=== PATIENT | female | born 1965 | race Two or more races ===

== ENCOUNTER 2017-10-05 14:25 | Emergency (ER) | payer MEDICAID ==
[~2017-10-05] VITALS: Ht 167.6 cm; Wt 89.4 kg
[2017-10-05 14:38] VITALS: BP 120/82
--- NOTE | 2017-10-05 15:28 | Emergency Room Report ---
History of Present Illness General Chief Complaint: Pain Source: EMS Present Illness [facility] Ms. Bronson is 52 -year-old female with history of depression, hypothyroidism and chronic pain who presents with diffuse body aches and chest pain. Recently traveled to her home country [facility]. While in [facility] she developed left sided chest pain. She was evaluated with EKG x-ray and lab. She did bring these results alongside her. She was evaluated by her pain management physician today with routine appt who referred to to her primary care physician today. Primary care physician recommended that she is evaluated in the ER. Her pain management physician gave her the tentative diagnosis of fibromyalgia. She's had no history of PE or cardiac disease. However she is concerned about her heart. She also provided information from air conditioning engineer.. She had normal echocardiogram at that time. She also informed me that she had normal outpatient cardiac stress test last year. Allergies: Coded Allergies: No Known Allergies (Unverified , 10/05/17) Patient History Past Medical History: other - as per HPI Past Surgical History: other - back surgery Social History: Denies: smoking, alcohol use, drug use Last Menstrual Period: NA Now: No Reviewed Nursing Documentation: PMH: Agreed; PSxH: Agreed Nursing Documentation-PMH Past Medical History: No History, Except For Review of Systems Constitutional: Denies: fever Respiratory: Denies: cough Cardiovascular: Reports: chest pain Gastrointestinal: Denies: abdominal pain Musculoskeletal: Reports: muscle pain; Denies: back pain All Other Systems: negative except mentioned in HPI Physical Exam Vital Signs Date Time Temp Pulse Resp B/P (MAP) Pulse Ox O2 Delivery O2 Flow Rate FiO2 10/05/17 14:18 97.4 75 18 120/82 99 Room Air 97.3 Sp02 EP Interpretation: reviewed, normal General Appearance: no apparent distress, alert, GCS 15, non-toxic Head: normocephalic, atraumatic Eyes: bilateral eye normal inspection ENT: hearing grossly normal, normal pharynx, no angioedema, normal voice Neck: full range of motion, supple/symm/no masses Respiratory: chest non-tender, lungs clear, normal breath sounds, speaking full sentences Cardiovascular #1: regular rate, rhythm, no edema Gastrointestinal: normal bowel sounds, non tender, soft, non-distended, no guarding, no rebound Rectal: deferred Genitourinary: normal inspection Musculoskeletal: back normal, gait/station normal, normal range of motion Neurologic: alert, oriented x3, responsive, motor strength/tone normal, sensory intact, speech normal Psychiatric: judgement/insight normal, memory normal, mood/affect normal Skin: normal color, no rash, warm/dry, well hydrated Medical Decision Making ER Course Ms. Bronson presents with diffuse body pain and chest pain. Chest pain is atypical for ACS. She is low risk for cardiac disease. There is no family history of cardiac disease. She has had previous cardiac evaluation. I recommended evaluation by pain management physician for myalgia. Also recommended further evaluation by primary physician for noncardiac etiology of chest pain. I do not suspect pulmonary embolism nor pneumothorax nor dissection nor PNA. Labs Test 10/05/17 16:00 10/05/17 16:55 Sodium Level 136 MMOL/L (136-145) Potassium Level 4.2 MMOL/L (3.5-5.1) Chloride Level 106 MMOL/L (98-107) Carbon Dioxide Level 24 MMOL/L (21-32) Anion Gap 6 mmol/L (5-15) Blood Urea Nitrogen 8 mg/dL (7-18) Creatinine 0.8 MG/DL (0.55-1.30) Estimat Glomerular Filtration Rate > 60 mL/min (>60) Glucose Level 95 MG/DL (74-106) Calcium Level 9.8 MG/DL (8.5-10.1) Total Bilirubin 0.7 MG/DL (0.2-1.0) Aspartate Amino Transf (AST/SGOT) 23 U/L (15-37) Alanine Aminotransferase (ALT/SGPT) 30 U/L (12-78) Alkaline Phosphatase 107 U/L (46-116) Total Creatine Kinase 90 U/L (26-308) Troponin I 0.000 ng/mL (0.000-0.056) Total Protein 7.3 G/DL (6.4-8.2) Albumin 3.9 G/DL (3.4-5.0) Globulin 3.4 g/dL Albumin/Globulin Ratio 1.1 (1.0-2.7) White Blood Count 9.8 K/UL (4.8-10.8) Red Blood Count 5.06 M/UL (4.20-5.40) Hemoglobin 14.0 G/DL (12.0-16.0) Hematocrit 41.8 % (37.0-47.0) Mean Corpuscular Volume 83 FL (80-99) Mean Corpuscular Hemoglobin 27.8 PG (27.0-31.0) Mean Corpuscular Hemoglobin Concent 33.6 G/DL (32.0-36.0) Red Cell Distribution Width 13.1 % (11.6-14.8) Platelet Count 225 K/UL (150-450) Mean Platelet Volume 12.3 FL (6.5-10.1) Neutrophils (%) (Auto) 49.4 % (45.0-75.0) Lymphocytes (%) (Auto) 40.8 % (20.0-45.0) Monocytes (%) (Auto) 6.2 % (1.0-10.0) Eosinophils (%) (Auto) 2.1 % (0.0-3.0) Basophils (%) (Auto) 1.6 % (0.0-2.0) Lab Results Impression negative troponin EKG Diagnostic Results EKG Time: 15:31 Rate: normal Rhythm: NSR ST Segments: no acute changes Other Impression no ST elevation no T wave abnormality rate 80 bpm nl axis Last Vital Signs Date Time Temp Pulse Resp B/P (MAP) Pulse Ox O2 Delivery O2 Flow Rate FiO2 10/05/17 14:38 97.3 84 18 120/82 99 Room Air 97.3 LILLIE DIEGO Oct 05, 2017 15:28
[2017-10-05] MEDS ORDERED: Norco 5mg/325mg tab ORAL ONE (15:30)
[2017-10-05 16:22] LABS: ANION GAP 6 mmol/L (5-15); BLOOD UREA NITROGEN 8 mg/dL (7-18); CALCIUM 9.8 MG/DL (8.5-10.1); CARBON DIOXIDE 24 MMOL/L (21-32); CHLORIDE 106 MMOL/L (98-107); CREATININE 0.8 MG/DL (0.55-1.30); POTASSIUM 4.2 MMOL/L (3.5-5.1); SODIUM 136 MMOL/L (136-145)
[2017-10-05 16:28] LABS: ALANINE AMINOTRANSFERASE 30 U/L (12-78); ALBUMIN 3.9 G/DL (3.4-5.0); ALBUMIN/GLOBULIN RATIO 1.1 (1.0-2.7); ALKALINE PHOSPHATASE 107 U/L (46-116); ASPARTATE AMINO TRANSFERASE 23 U/L (15-37); BILIRUBIN,TOTAL 0.7 MG/DL (0.2-1.0); CREATINE KINASE 90 U/L (26-308)
[2017-10-05 17:03] LABS: BASOPHILS % (AUTO) 1.6 % (0.0-2.0); EOSINOPHILS % (AUTO) 2.1 % (0.0-3.0); HEMATOCRIT 41.8 % (37.0-47.0); LYMPHOCYTES % (AUTO) 40.8 % (20.0-45.0); MEAN CORPUSCULAR VOLUME 83 FL (80-99); MONOCYTES % (AUTO) 6.2 % (1.0-10.0); NEUTROPHILS % (AUTO) 49.4 % (45.0-75.0); PLATELET COUNT 225 K/UL (150-450); RED BLOOD COUNT 5.06 M/UL (4.20-5.40); RED CELL DISTRIBUTION WIDTH 13.1 % (11.6-14.8); WHITE BLOOD COUNT 9.8 K/UL (4.8-10.8)
[2017-10-05 17:16] VITALS: BP 118/63
[2017-10-05 17:38] VITALS: BP 118/63
== END 2017-10-05 17:38 | disposition home or self-care (01) ==
LOC: EDBD 14:25 → EMR 17:15
DX: R07.9 Chest pain, unspecified (principal); R52 Pain, unspecified; G89.29 Other chronic pain; M79.7 Fibromyalgia
CPT/HCPCS: 36415; 80053; 82550; 84484; 85025; 93005; 99283; 99284